=== PATIENT | female | born 1950 | race Caucasian/White ===

== ENCOUNTER 2023-11-02 12:17 | Outpatient (CLI) | payer OTHER ==
[2023-11-02 15:28] LABS: Hemoglobin 13.1 g/dL (12.0-15.5); Mean Corpuscular HGB CONC 32.8 g/dL (32.0-36.0); Mean Corpuscular Volume 91.7 fl (81.6-98.3); Platelet Count 220 10x3/uL (150-450); RBC Distribution Width 13.5 % (11.5-14.5); Red Blood Cell (RBC) Count 4.36 10x6/uL (3.90-5.03); White Blood Cell (WBC) Count 9.4 10x3/uL (3.5-10.5)
== END 2023-11-02 12:18 | disposition home or self-care (01) ==
LOC: CSHLAB 12:17
PROVIDERS: ATTEND Surgery
DX: Z01.818 Encounter for other preprocedural examination (principal); C50.919 Malignant neoplasm of unspecified site of unspecified female breast
CPT/HCPCS: 85027; 93005; 93010

== ENCOUNTER 2023-11-03 07:35 | Day surgery (SDC) | payer OTHER ==
[2023-11-02 09:29] VITALS: BMI 30.4
[2023-11-03] MEDS ORDERED: EPINEPHrine 1 MG/ML VIAL ONE (08:16)
[2023-11-03] MEDS ORDERED: CEFAZOLIN 2 GM VIAL ONE (08:17)
[2023-11-03] MEDS ORDERED: Bupivacaine PF 0.5% 30 ML VIAL ONE (08:17)
[2023-11-03] MEDS ORDERED: fentaNYL 50 mcg/mL 1 mL Vial ONE (08:18)
[2023-11-03] MEDS ORDERED: Ondansetron PF 4 MG/2 ML Vial ONE (08:18)
[2023-11-03] MEDS ORDERED: PROPOFOL 20 ML ONE (08:18)
[2023-11-03] MEDS ORDERED: Dexamethasone 4 mg/ml Vial ONE (08:18)
[2023-11-03] MEDS ORDERED: Lidocaine 2% PF 5 ML VIAL ONE (08:18)
[2023-11-03] MEDS ORDERED: Midazolam HCl 2 mg/2 ml Vial ONE (08:18)
[2023-11-03] MEDS ORDERED: PHENYLEPHRINE-NS 100 MCG/ML 10 ML SYRINGE ONE (09:46)
[2023-11-03] MEDS ORDERED: Acetaminophen 325 MG TAB PO PRN (10:12)
[2023-11-03] MEDS ORDERED: HYDROcodone/Acetaminophen 5/325 mg Tablet PO PRN (10:12)
== END 2023-11-03 11:20 | disposition home or self-care (01) ==
LOC: CSHSDC 07:35
PROVIDERS: ATTEND Surgery
PROC: 0JH60WZ Insertion of Totally Implantable Vascular Access Device into Chest Subcutaneous Tissue and Fascia, Open Approach (ICD-10-PCS; principal; 2023-11-03)
DX: C34.92 Malignant neoplasm of unspecified part of left bronchus or lung (principal); I10 Essential (primary) hypertension; Z91.040 Latex allergy status; Z79.899 Other long term (current) drug therapy
CPT/HCPCS: 36561; 71045; C1788; J0171; J3010; J1100; J1642; J2001; J2250; J2405; J2704; S0020